=== PATIENT | male | born 1965 | race Caucasian/White ===

== ENCOUNTER → 2017-05-27 | Outpatient (CLI) | payer OTHER ==
[2017-05-27 14:31] LABS: HEMATOCRIT 44.3 % (42-52); MEAN CELL VOLUME 89.1 fL (80-100); MEAN CORPUSCULAR HEMOGLOBIN 30.4 pg (25-34); MEAN CORPUSCULAR HGB CONC 34.1 g/dl (32-36); MEAN PLATELET VOLUME 11.1 fL (7.4-10.4); PLATELET COUNT 204 K/uL (130-400); RED BLOOD COUNT 4.97 M/uL (4.7-6.1)
[2017-05-27 14:36] LABS: INR 0.9 (0.9-1.1); PROTHROMBIN TIME (PATIENT) 9.7 SECONDS (9.0-12.0)
[2017-05-27 15:29] LABS: ALT/SGPT 40 U/L (12-78); AST/SGOT 23 U/L (15-37); BLOOD UREA NITROGEN 20 mg/dl (7-18); BUN/CREATININE RATIO 22.1 (10-20); CALCIUM 8.7 mg/dl (8.5-10.1); CARBON DIOXIDE 28 mmol/L (21-32); CHLORIDE 107 mmol/L (98-107); CREATININE 0.91 mg/dl (0.60-1.40); GLUCOSE 80 mg/dl (70-99); POTASSIUM 3.7 mmol/L (3.5-5.1); SODIUM 140 mmol/L (136-145)
[2017-05-27 15:34] LABS: ALB/GLOB RATIO 1.1 (0.9-2); ALKALINE PHOSPHATASE 87 U/L (45-117); PROSTATE SPECIFIC ANTIGEN 0.499 ng/ml (0.000-4.000)
== END | disposition home or self-care (01) ==
LOC: C.LAB1850 12:30
PROVIDERS: ATTEND Internal Medicine
DX: Z12.5 Encounter for screening for malignant neoplasm of prostate (principal); K62.5 Hemorrhage of anus and rectum

== ENCOUNTER 2017-05-28 06:55 | Emergency (ER) | payer OTHER ==
[~2017-05-28] VITALS: Ht 175.3 cm; Wt 82.2 kg
[2017-05-28 07:02] VITALS: TEMP 36.5; Ht 175.3 cm; Wt 82.2 kg
[2017-05-28 07:51] LABS: BASO % 0.5 %; BASO ABS # 0.02 K/uL (0-0.2); EOS % 4.7 %; HEMATOCRIT 43.7 % (42-52); HEMOGLOBIN 14.8 g/dL (14.0-18.0); IG# 0.01 K/uL (0.00-0.02); LYMPH % 27.8 %; LYMPH ABS # 1.19 K/uL (1.2-3.4); MEAN CELL VOLUME 89.7 fL (80-100); MEAN CORPUSCULAR HEMOGLOBIN 30.4 pg (25-34); MEAN CORPUSCULAR HGB CONC 33.9 g/dl (32-36); MEAN PLATELET VOLUME 10.5 fL (7.4-10.4); MONO % 8.2 %; MONO ABS # 0.35 K/uL (0.11-0.59); NEUT % 58.6 %; NEUT ABS # 2.51 K/uL (1.4-6.5); PLATELET COUNT 178 K/uL (130-400); RED CELL DISTRIBUTION WIDTH CV 12.5 % (11.5-14.5); RED CELL DISTRIBUTION WIDTH SD 40.6 fL (36.4-46.3); WHITE BLOOD COUNT 4.28 K/uL (4.8-10.8)
[2017-05-28 08:05] LABS: INR 0.9 (0.9-1.1); PTT PATIENT 26.8 SECONDS (21.0-31.0)
[2017-05-28 08:06] LABS: ALBUMIN 3.8 gm/dl (3.4-5.0); CALCIUM 8.8 mg/dl (8.5-10.1); CREATININE 0.86 mg/dl (0.60-1.40); POTASSIUM 4.1 mmol/L (3.5-5.1)
[2017-05-28 08:09] LABS: TOTAL PROTEIN 7.1 gm/dl (6.4-8.2)
--- NOTE | 2017-05-28 08:24 | EMERGENCY ROOM VISIT NOTE ---
History Report prepared by Lynda: Val Gonzalez Under the Supervision of: Calvin ThomasO. First contact with patient: 07:06 Chief Complaint: RECTAL BLEEDING Stated Complaint: BLOOD IN STOOL Nursing Triage Summary: patient states has has had blood stool for past 4 days. patient went to PCP yesterday evening and was told if the bleeding was as heavy as yesterday to come to ER. colonoscopy to be scheduled today for as soon as possible next week per patient. patient describes blood in stool as "alot of clots." denies n/v/d History of Present Illness The patient is a 52 year old male who presents to the Emergency Room with complaints of persistent hematochezia that began 4 days ago. The patient describes the blood in his stool as blood clots. The patient denies any abdominal pain, fever, chills, nausea, vomiting, diarrhea, shortness of breath, weakness, rectal pain or recent traveling. The patient states he saw his PCP yesterday, who recommended the patient come to the Emergency Department if the bleeding continued. He notes that he had a colonoscopy performed 4 years ago, noting there were 2 benign polyps found. He denies any history of diverticulosis , diverticulitis, or any bleeding problems. Source of History: patient Onset: 4 days ago Position: other (rectum) Quality: other (hematoche) Associated Symptoms: No fevers, No chills, No SOB, No nausea, No vomiting, No abdominal pain, No diarrhea Review of Systems See HPI for pertinent positives & negatives. A total of 10 systems reviewed and were otherwise negative. Past Medical & Surgical Surgical Problems: (1) Hx of knee surgery (2) Hx of shoulder surgery Family History FH: dementia FH: diabetes mellitus Hypertension Social History Smoking Status: Never Smoker Smokeless Tobacco Use: No Alcohol Use: none Drug Use: none Marital Status: Housing Status: lives with family Current/Historical Medications No Active Prescriptions or Reported Meds Allergies Coded Allergies: No Known Allergies (Unverified , NONE, 05/28/17) Physical Exam Vital Signs Date Time Temp Pulse Resp B/P (MAP) Pulse Ox O2 Delivery O2 Flow Rate FiO2 05/28/17 09:00 76 16 129/81 98 Room Air 05/28/17 07:46 70 05/28/17 07:02 36.5 72 18 139/86 99 Room Air Physical Exam GENERAL: Patient is awake, alert, and in no acute distress. Patient is resting comfortably and showing no signs of anxiety EYES: The conjunctivae are clear. The pupils are round and reactive. EARS, NOSE, MOUTH AND THROAT: The nose is without any evidence of any deformity. Mucous membranes are moist tongue is midline NECK: The neck is nontender and supple. RESPIRATORY: Normal respiratory effort is noted there is no evidence of wheezing rhonchi or rales CARDIOVASCULAR: Regular rate and rhythm noted there no murmurs rubs or gallops normal S1 normal S2 GASTROINTESTINAL: Rectal exam showed no external hemorrhoids, no external source of bleeding, and strongly heme positive. The abdomen is soft. Bowel sounds are present in all quadrants. Abdomen is nontender PELVIS: The Pelvis is stable. No tenderness to palpation is noted. BACK: No midline tenderness or or step-off noted range of motion in flexion extension as well as rotation no signs of muscle spasm noted MUSCULOSKELETAL/EXTREMITIES: There is no evidence of gross deformity full range of motion is noted in the hips and shoulders SKIN: There is no obvious evidence of any rash. There are no petechiae, pallor or cyanosis noted. NEUROLOGIC: Patient is awake alert and oriented x3 Medical Decision & Procedures ER Provider Diagnostic Interpretation: Radiology results as stated below per my review and radiologist interpretation: CHEST AND ABDOMEN 2 VIEWS HISTORY: Generalized abdominal pain. COMPARISON: None. FINDINGS: The lungs are clear. The cardiomediastinal silhouette is within normal limits. There is no pneumoperitoneum or pneumatosis. The bowel gas pattern is unremarkable. No evidence for bowel obstruction. Old, healed distal right clavicle fracture. No renal or ureteral calculi. T12-L1 spinal rods are noted. Pelvic calcifications are consistent with phleboliths. No renal or ureteral calculi identified. Small to moderate amount well-formed stool seen within the colon and rectum. IMPRESSION: No acute cardiopulmonary process. No evidence for bowel obstruction. Small to moderate amount of well-formed stool seen within the colon and rectum. Electronically signed by: Quinton Enriquez M.D. 05/28/2017 8:25 AM Dictated Date/Time: 05/28/2017 8:19 AM Laboratory Results 05/28/17 07:38 Red Blood Count 4.87, Mean Corpuscular Volume 89.7, Mean Corpuscular Hemoglobin 30.4, Mean Corpuscular Hemoglobin Concent 33.9, Mean Platelet Volume 10.5, Neutrophils (%) (Auto) 58.6, Lymphocytes (%) (Auto) 27.8, Monocytes (%) (Auto) 8.2, Eosinophils (%) (Auto) 4.7, Basophils (%) (Auto) 0.5, Neutrophils # (Auto) 2.51, Lymphocytes # (Auto) 1.19, Monocytes # (Auto) 0.35, Eosinophils # (Auto) 0.20, Basophils # (Auto) 0.02 05/28/17 07:38 Test 05/28/17 07:30 05/28/17 07:38 Urine Color YELLOW Urine Appearance CLEAR (CLEAR) Urine pH 5.5 (4.5-7.5) Urine Specific [place] 1.016 (1.000-1.030) Urine Protein NEG (NEG) Urine Glucose (UA) NEG (NEG) Urine Ketones NEG (NEG) Urine Occult Blood NEG (NEG) Urine Nitrite NEG (NEG) Urine Bilirubin NEG (NEG) Urine Urobilinogen NEG (NEG) Urine Leukocyte Esterase NEG (NEG) White Blood Count 4.28 K/uL (4.8-10.8) Red Blood Count 4.87 M/uL (4.7-6.1) Hemoglobin 14.8 g/dL (14.0-18.0) Hematocrit 43.7 % (42-52) Mean Corpuscular Volume 89.7 fL (80-100) Mean Corpuscular Hemoglobin 30.4 pg (25-34) Mean Corpuscular Hemoglobin Concent 33.9 g/dl (32-36) Platelet Count 178 K/uL (130-400) Mean Platelet Volume 10.5 fL (7.4-10.4) Neutrophils (%) (Auto) 58.6 % Lymphocytes (%) (Auto) 27.8 % Monocytes (%) (Auto) 8.2 % Eosinophils (%) (Auto) 4.7 % Basophils (%) (Auto) 0.5 % Neutrophils # (Auto) 2.51 K/uL (1.4-6.5) Lymphocytes # (Auto) 1.19 K/uL (1.2-3.4) Monocytes # (Auto) 0.35 K/uL (0.11-0.59) Eosinophils # (Auto) 0.20 K/uL (0-0.5) Basophils # (Auto) 0.02 K/uL (0-0.2) RDW Standard Deviation 40.6 fL (36.4-46.3) RDW Coefficient of Variation 12.5 % (11.5-14.5) Immature Granulocyte % (Auto) 0.2 % Immature Granulocyte # (Auto) 0.01 K/uL (0.00-0.02) Prothrombin Time 9.9 SECONDS (9.0-12.0) Prothromb Time International Ratio 0.9 (0.9-1.1) Activated Partial Thromboplast Time 26.8 SECONDS (21.0-31.0) Partial Thromboplastin Ratio 1.0 Anion Gap 7.0 mmol/L (3-11) Est Creatinine Clear Calc Drug Dose 98.2 ml/min Estimated GFR () 113.9 Estimated GFR (Non- 98.3 BUN/Creatinine Ratio 22.0 (10-20) Calcium Level 8.8 mg/dl (8.5-10.1) Total Bilirubin 0.8 mg/dl (0.2-1) Direct Bilirubin 0.2 mg/dl (0-0.2) Aspartate Amino Transf (AST/SGOT) 22 U/L (15-37) Alanine Aminotransferase (ALT/SGPT) 37 U/L (12-78) Alkaline Phosphatase 79 U/L (45-117) Total Protein 7.1 gm/dl (6.4-8.2) Albumin 3.8 gm/dl (3.4-5.0) Lipase 154 U/L (73-393) Laboratory results per my review. ED Course 0707: The patient was evaluated in room B10. A complete history and physical examination were performed. 0817: I discussed the test findings with the patient. 0821: I discussed the patient's case with Dr. Orta GI. The patient will be evaluated for further management. 0905: Upon reevaluation, the patient is resting comfortably. I discussed the results and treatment plan with him. The patient verbalized agreement of the treatment plan. He was discharged home. Medical Decision Prior records/ancillary studies reviewed. Triage Nursing notes reviewed. The patient's history was concerning for possible gastrointestinal bleeding. Differential diagnosis: Etiologies such as diverticulosis, AVM, coagulopathy, colitis, inflammatory bowel disease, malignancy, Ghazal-Perkins tear, esophagitis, peptic ulcer disease , variceal bleed, gastritis, epistaxis, fissure, hemorrhoids, as well as others were entertained. The patient is a 52-year-old male who presented to the emergency department for an evaluation of lower GI bleeding. The patient had intermittent episodes with bowel movements which included a large amount of blood but also clots. The patient is hemodynamically stable. He had blood work yesterday. I reviewed his blood work and radiographic studies with him today. 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 At this time we were able to schedule the patient with a follow-up colonoscopy. The patient was encouraged to follow-up for this appointment. He was also encouraged to continue all medications as prescribed. I also recommended that he return to the emergency department immediately symptoms change worsen or the need arises. Medication Reconcilliation Current Medication List: was personally reviewed by me Blood Pressure Screening Patient's blood pressure: Normal blood pressure Consults Time Called: 820 Consulting Physician: KATHY Polo Returned Call: 820 I discussed the patient's case [place] [facility] [place] The patient will be evaluated for further management. Impression Primary Impression: Lower GI bleed Scribe Attestation The scribe's documentation has been prepared under my direction and personally reviewed by me in its entirety. I confirm that the note above accurately reflects all work, treatment, procedures, and medical decision making performed by me. Departure Information Dispostion Home / Self-Care Prescriptions No Active Prescriptions or Reported Meds Referrals RV. Gardner MD (PCP) Forms HOME CARE DOCUMENTATION FORM, IMPORTANT VISIT INFORMATION, WORK / SCHOOL INSTRUCTIONS Patient Instructions My [facility] Additional Instructions Follow-up for the colonoscopy as scheduled. Avoid any strenuous activity. Return to the emergency department if symptoms change worsen or the need arises.
[2017-05-28 09:00] VITALS: BP 129/81; PULSE 76; O2SAT 98
== END 2017-05-28 09:28 | disposition home or self-care (01) ==
LOC: C.EDB 06:57
DX: K92.2 Gastrointestinal hemorrhage, unspecified (principal); Z83.3 Family history of diabetes mellitus

== ENCOUNTER → 2017-06-02 | Day surgery (SDC) | payer OTHER ==
[2017-05-28 09:40] VITALS: BMI 26.0
[~2017-06-02] VITALS: Ht 175.3 cm; Wt 81.8 kg
[~2017-06-02] MED LIST: LIDOCAINE HCL 2% 2 ML VIAL (20MG/ML) ONE; MIDAZOLAM HCL 1 MG/ML 2ML VIAL ONE; ONDANSETRON INJ 2 MG/ML 2 ML VIAL ONE; PROPOFOL IV EMULSION 10 MG/ML 20 ML VIAL IV ONE; SODIUM CHLORIDE 0.9% 500ML 500 ML IV ONE
[2017-06-02 09:28] VITALS: Ht 175.3 cm; Wt 81.8 kg
--- NOTE | 2017-06-02 09:44 | Endo History and Physical ---
History & Physical Date of Service: Jun 02, 2017. Chief Complaint: RECTAL BLEEDING Referring Physician: DR JEFFREY History of Present Illness 52 yo CM who presents for colonoscopy secondary to rectal bleeding. Past Surgical History Hx Cardiac Surgery: No Hx Internal Defibrillator: No Hx Pacemaker: No Hx Abdominal Surgery: No Hx of Implantable Prosthesis: No Hx Post-Op Nausea and Vomiting: No Hx Cancer Surgery: No Hx Thoracic Surgery: No Hx Orthopedic: Yes (FRACTURED LUMBAR SPINE AND LEFT ANKLE WITH REPAIR DUE TO [id number]. ) Hx Urinary Tract Surgery: No Family History None Social History Smoking Status: Never Smoker Hx Substance Use: No Hx Alcohol Use: Yes (SLIGHTLY OCAS) Allergies Coded Allergies: No Known Allergies (Unverified , NONE, 06/02/17) Current Medications Reported Home Medications Medications Dose Route/Sig Max Daily Dose Days Date Category No Active Prescriptions or Reported Medications Rx Vital Signs Weight (Kilograms): 81.82 Height (Feet): 5 Height (Inches): 9 Date Time Temp Pulse Resp B/P (MAP) Pulse Ox O2 Delivery O2 Flow Rate FiO2 06/02/17 09:35 36.5 65 18 128/85 (99) 98 Room Air Physical Exam General Appearance: WD/WN, no apparent distress Respiratory/Chest: Auscultation: breath sounds normal Cardiovascular: Heart Auscultation: RRR Abdomen: Bowel Sounds: normal Inspection & Palpation: soft, non-distended, no tenderness, guarding & rebound Assessment and Plan Assessment: 52 yo CM who presents for colonoscopy secondary to rectal bleeding. Plan: Proceed with colonoscopy.
--- NOTE | 2017-06-02 10:20 | GI REPORT ---
Procedure Date: 06/02/2017 9:51 AM Procedure: Colonoscopy Indications: Rectal bleeding Medicines: Monitored Anesthesia Care Complications: No immediate complications. Estimated Blood Loss: Estimated blood loss: none. Procedure: Pre-Anesthesia Assessment: - Prior to the procedure, a History and Physical was performed, and patient medications and allergies were reviewed. The patient's tolerance of previous anesthesia was also reviewed. The risks and benefits of the procedure and the sedation options and risks were discussed with the patient. All questions were answered, and informed consent was obtained. Prior Anticoagulants: The patient has taken no previous anticoagulant or antiplatelet agents. ASA Grade Assessment: II - A patient with mild systemic disease. After reviewing the risks and benefits, the patient was deemed in satisfactory condition to undergo the procedure. After I obtained informed consent, the scope was passed under direct vision. Throughout the procedure, the patient's blood pressure, pulse, and oxygen saturations were monitored continuously. The scope was introduced through the anus and advanced to the cecum, identified by appendiceal orifice and ileocecal valve. The colonoscopy was performed without difficulty. The patient tolerated the procedure well. The quality of the bowel preparation was good. The terminal ileum, ileocecal valve, appendiceal orifice, and rectum were photographed. Findings: Scattered moderate inflammation characterized by erythema, friability and loss of vascularity was found in the sigmoid colon, in the descending colon and in the ascending colon. Biopsies were taken with a cold forceps for histology. Multiple small-mouthed diverticula were found in the sigmoid colon. Impression: - Scattered moderate inflammation was found in the sigmoid colon, in the descending colon and in the ascending colon secondary to colitis. Biopsied. - Diverticulosis in the sigmoid colon. Recommendation: - Resume previous diet. - Continue present medications. - Repeat colonoscopy for surveillance based on pathology results. - Return to primary care physician as previously scheduled. Bebo Fisher, DO 06/02/2017 10:19:16 AM This report has been signed electronically. Note Initiated On: 06/02/2017 9:51 AM I attest to the content of the Intraoperative Record and orders documented therein, exceptions below
--- NOTE | 2017-06-02 10:21 | Discharge Instructions ---
Endoscopy Patient Instructions Date / Procedure(s) Performed Jun 02, 2017. Colonoscopy Allergy Information Coded Allergies: No Known Allergies (Unverified , NONE, 06/02/17) Discharge Date / Findings Jun 02, 2017. Non-specific colitis s/p biopsies Diverticulosis Medication Instructions OK to resume all medications today as prescribed Reported Home Medications Medications Dose Route/Sig Max Daily Dose Days Date Category No Active Prescriptions or Reported Medications Rx Provider Instructions Activity Restrictions - No exercising or heavy lifting for 24 hours. - Do not drink alcohol the day of the procedure. - Do not drive a car or operate machinery until the day after the procedure. - Do not make any important decisions or sign important papers in 24 hours after the procedure. Following Day: - Return to full activity which may include returning to work/school. Diet Start your diet with liquids and light foods (jello, soup, juice, toast). Then eat your usual diet if not nauseated. Treatment For Common After Affects For mild abdominal pain, bloating, or excessive gas: - Rest - Eat lightly - Lie on right side Follow-Up Information Follow-up with DR JEFFREY as scheduled Anesthesia Information What You Should Know You have had a procedure that required some medicine to reduce anxiety and discomfort. This treatment is called moderate sedation. After receiving the treatment, you may be sleepy, but you will be able to breathe on your own. The effects of the treatment may last for several hours. Follow these instructions along with Activity/Diet recommendations noted above: * Do NOT do anything where dizziness or clumsiness would be dangerous. * Rest quietly at home today, then you can be up and about tomorrow. * Have a responsible person stay with you the rest of today. * You may have had an I.V. today. If so, you may take the dressing off later today. Recommendations Call your doctor if: * Trouble breathing * Continuous vomiting for more than 24 hours * Temperature above 101 degrees * Severe abdominal pain or bloating * Pain not relieved by pain medicine ordered * There is increased drainage or redness from any incision * A large amount of rectal bleeding greater than 2-3 tablespoons. (If you had a polyp/s removed or have hemorrhoids, a small amount of blood - from the rectum is to be expected.) * You have any unanswered questions or concerns. IN THE EVENT OF A SERIOUS EMERGENCY, GO TO THE NEAREST EMERGENCY ROOM Your discharge instructions were prepared by provider Bebo Fisher. Patient Instructions Signature Page Carlos Serra Patient (or Guardian) Signature/Date: I have read and understand the instructions given to me by my caregivers. Caregiver/RN/Doctor Signature/Date: The above-named patient and/or guardian has received patient instructions on this date. + Original Patient Signature Page (only) stays with chart. Please make copy for patient.
--- NOTE | 2017-06-02 10:42 | Anesthesiology Progress Note ---
Anesthesia Post Op Note Date & Time Jun 02, 2017 at 10:42 Vital Signs Vital Signs Past 12 Hours Date Time Temp Pulse Resp B/P (MAP) Pulse Ox O2 Delivery O2 Flow Rate FiO2 06/02/17 10:39 65 20 126/83 (97) 96 Room Air 06/02/17 10:22 63 20 119/78 (92) 95 Room Air 06/02/17 09:35 36.5 65 18 128/85 (99) 98 Room Air Notes Mental Status: alert / awake / arousable, participated in evaluation Pt Amnestic to Procedure: Yes Nausea / Vomiting: adequately controlled Pain: adequately controlled Airway Patency, RR, SpO2: stable & adequate BP & HR: stable & adequate Hydration State: stable & adequate Anesthetic Complications: no major complications apparent
[2017-06-02 11:00] VITALS: BP 118/82; PULSE 55; O2SAT 98
== END | disposition home or self-care (01) ==
LOC: C.GI 08:51
PROVIDERS: ATTEND Internal Medicine
DX: K62.5 Hemorrhage of anus and rectum (principal); K57.30 Diverticulosis of large intestine without perforation or abscess without bleeding; K52.9 Noninfective gastroenteritis and colitis, unspecified

== ENCOUNTER → 2017-06-07 | Outpatient (CLI) | payer OTHER ==
[2017-06-07 09:46] LABS: BASO % 0.6 %; BASO ABS # 0.03 K/uL (0-0.2); EOS % 5.8 %; EOS ABS # 0.27 K/uL (0-0.5); HEMATOCRIT 44.4 % (42-52); HEMOGLOBIN 15.1 g/dL (14.0-18.0); IG# 0.01 K/uL (0.00-0.02); LYMPH % 29.9 %; LYMPH ABS # 1.39 K/uL (1.2-3.4); MEAN CELL VOLUME 90.2 fL (80-100); MEAN CORPUSCULAR HEMOGLOBIN 30.7 pg (25-34); MEAN PLATELET VOLUME 10.7 fL (7.4-10.4); MONO % 8.4 %; MONO ABS # 0.39 K/uL (0.11-0.59); NEUT % 55.1 %; NEUT ABS # 2.56 K/uL (1.4-6.5); PLATELET COUNT 183 K/uL (130-400); RED CELL DISTRIBUTION WIDTH CV 12.4 % (11.5-14.5); RED CELL DISTRIBUTION WIDTH SD 40.8 fL (36.4-46.3); WHITE BLOOD COUNT 4.65 K/uL (4.8-10.8)
[2017-06-07 10:00] LABS: ALBUMIN 3.7 gm/dl (3.4-5.0); ALT/SGPT 33 U/L (12-78); AST/SGOT 16 U/L (15-37); BLOOD UREA NITROGEN 22 mg/dl (7-18); CALCIUM 8.9 mg/dl (8.5-10.1); CARBON DIOXIDE 31 mmol/L (21-32); CREATININE 1.06 mg/dl (0.60-1.40); GLUCOSE 137 mg/dl (70-99); POTASSIUM 3.6 mmol/L (3.5-5.1); SODIUM 138 mmol/L (136-145)
[2017-06-07 10:02] LABS: ALKALINE PHOSPHATASE 80 U/L (45-117); TOTAL PROTEIN 7.2 gm/dl (6.4-8.2)
== END | disposition home or self-care (01) ==
LOC: C.LAB1850 07:11
PROVIDERS: ATTEND Internal Medicine
DX: K52.9 Noninfective gastroenteritis and colitis, unspecified (principal)